=== PATIENT | male | born 1970 | race Caucasian/White ===

== ENCOUNTER 2020-01-11 14:05 | Emergency (ER) | payer SELFPAY ==
[~2020-01-11] VITALS: Ht 182.9 cm; Wt 104.5 kg
--- NOTE | 2020-01-11 14:46 | PHYS DOC ---
General Adult EDM: Chief Complaint: FOREIGN BODY/EYES HPI: HPI: Patient is a 49 year old male who presents with states 2 days ago he was at work and he was cleaning out a plastic injecting machine when a piece of the plastic flake went up and got in his eye. He states he was wearing his protective PPE but somehow got in his right eye. He states that he rubbed it and now the outer conjunctivae is hemorrhaged and he states he is having some blurred vision. He states he is having pain. He is up-to-date on his tetanus shot. Patient rates his pain a 10 out of 10. States it is sharp and throbbing. It is light sensitive. There is no swelling on the outside of the eye. Review of Systems: Review of Systems: Constitutional: Denies fever or chills. [] Eyes: Right eye blurry change in visual acuity, Conjunctiva redness, pain. [] HENT: Denies nasal congestion or sore throat. [] Respiratory: Denies cough or shortness of breath. [] Cardiovascular: Denies chest pain or edema. [] GI: Denies abdominal pain, nausea, vomiting, bloody stools or diarrhea. [] : Denies dysuria. [] Musculoskeletal: Denies back pain or joint pain. [] Integument: Denies rash. [] Neurologic: Denies headache, focal weakness or sensory changes. [] Endocrine: Denies polyuria or polydipsia. [] Lymphatic: Denies swollen glands. [] Psychiatric: Denies depression or anxiety. [] Heart Score: Risk Factors: Risk Factors: DM, Current or recent (<one month) smoker, HTN, HLP, family history of CAD, obesity. Risk Scores: Score 0 - 3: 2.5% MACE over next 6 weeks - Discharge Home Score 4 - 6: 20.3% MACE over next 6 weeks - Admit for Clinical Observation Score 7 - 10: 72.7% MACE over next 6 weeks - Early Invasive Strategies Current Medications: Current Medications Medications (Trade) Dose Ordered Sig/Sara Start Time Stop Time Status Last Admin Dose Admin Fluorescein Sodium (Ful-Mckayla) 1 strip 1X ONCE 01/11/20 15:00 01/11/20 15:01 Tetracaine HCl (Tetracaine) 1 drop 1X ONCE 01/11/20 15:00 01/11/20 15:01 Allergies: Allergies: Allergies Coded Allergies Type Severity Reaction Last Updated Verified No Known Drug Allergies 01/11/20 No Physical Exam: PE: Constitutional: Well developed, well nourished, no acute distress, non-toxic appearance. [] HENT: Normocephalic, atraumatic, bilateral external ears normal, oropharynx moist, no oral exudates, nose normal. [] Eyes: PERRLA, EOMI, conjunctiva hemorrhage, no discharge. [] Neck: Normal range of motion, no tenderness, supple, no stridor. [] Cardiovascular:Heart rate regular rhythm, no murmur [] Lungs & Thorax: Bilateral breath sounds clear to auscultation [] Abdomen: Bowel sounds normal, soft, no tenderness, no masses, no pulsatile masses. [] Skin: Warm, dry, no erythema, no rash. [] Back: No tenderness, no CVA tenderness. [] Extremities: No tenderness, no cyanosis, no clubbing, ROM intact, no edema. [] Neurologic: Alert and oriented X 3, normal motor function, normal sensory function, no focal deficits noted. [] Psychologic: Affect normal, judgement normal, mood normal. [] EKG: EKG: [] Radiology/Procedures: Radiology/Procedures: [] Course & Med Decision Making: Course & Med Decision Making Pertinent Labs and Imaging studies reviewed. (See chart for details) See HPI. Alert and oriented x4. Ambulatory with a steady gait. PERRLA. Speaks in full clear sentences. Eye Exam Visual accuity: Eye exam: PERRL, Extraocular muscles intact. No signs of ruptured globe. Sclera outer right eye hemmorhage. Red reflex present. Foreign body: No foreign bodies seen with examination or with lid flip exam. Reza-pen: N/A Fluorescein test: Corneal abrasion present to out and inner conjunctiva. Anesthetic: Tetracaine [] Dragon Disclaimer: Dragon Disclaimer: This electronic medical record was generated, in whole or in part, using a voice recognition dictation system. Departure Departure Impression: Primary Impression: Corneal abrasion, right Qualified Codes: S05.01XA - Injury of conjunctiva and corneal abrasion without foreign body, right eye, initial encounter Disposition: HOME, SELF-CARE Condition: STABLE Referrals: NO PCP (PCP) Ana Paula SADLER MD Patient Instructions: Eye - Corneal Abrasion Additional Instructions: Follow-up with an eye doctor soon as possible. I have referred you to the eye doctor here at [place]. Use antibiotic ointment as prescribed. Scripts Hydrocodone/Apap 5-325 (NORCO 5-325 TABLET) 1 Each Tablet 1 TAB PO PRN Q6HRS PRN for PAIN, #10 TAB 0 Refills Prov: HODA PEREZ APRN 01/11/20 Erythromycin Base (Erythromycin) 1 Gm Oint...g. 1 GM OP QID for 10 Days, #1 MISC Prov: HODA PEREZ APRN 01/11/20 Justicifation of Admission Dx: Justifications for Admission: Justification of Admission Dx: N/A HODA PEREZ CARBIDE GRINDER Jan 11, 2020 14:46
[2020-01-11] MEDS ORDERED: TETRACAINE 0.5% OPHTH SOLUTION 4ML BOTTLE. OD ONE (15:00)
[2020-01-11] MEDS ORDERED: HYDR-3164 PO (15:00)
[2020-01-11] MEDS ORDERED: ERYT1OIN6 OP (15:00)
[2020-01-11] MEDS ORDERED: FLUORESCEIN OPHTH TEST STRIP. OD ONE (15:00)
[2020-01-11 15:30] VITALS: BP 164/73
== END 2020-01-11 15:30 | disposition home or self-care (01) ==
LOC: ER 14:05
DX: S05.01XA Injury of conjunctiva and corneal abrasion without foreign body, right eye, initial encounter (principal); Y29.XXXA Contact with blunt object, undetermined intent, initial encounter; Y93.89 Activity, other specified; Y92.89 Other specified places as the place of occurrence of the external cause; Y99.8 Other external cause status
CPT/HCPCS: 99283